=== PATIENT | male | born 1960 | race Caucasian/White ===

== ENCOUNTER → 2017-03-01 | Outpatient (CLI) | payer BC ==
--- NOTE | 2017-03-02 10:51 | MRI ---
HISTORY: Low back pain, radiculopathy Study: MRI lumbar spine without contrast Comparison: None Technique: Multiplanar multi-sequence MRI of the lumbar spine was obtained. Sagittal T1, sagittal T 2, and stir weighted images, axial T1, and axial T2 images were obtained. Findings: The lumbar spine demonstrates normal alignment with the expected signal characteristics of the bone marrow. The conus of the cord terminates normally. T12 -- L1: No evidence for compressive disc disease. The neural foramina are patent. The joints are normal. L1 -- L2: No evidence for compressive disc disease. The neural foramina are patent. The joints are n ormal. L2 -- L3: No evidence for compressive disc disease. The neural foramina are patent. Bilateral facet arthropathy is present peer L3 -- L4: No evidence for compressive disc disease. The neural foramina are patent. Bilateral facet arthropathy is present. L4 -- L5: Concentric disk bulging effaces the thecal sac and contributes along with facet arthropath y to lateral recess narrowing bilaterally. L5 -- S1: Concentric disk bulging effaces the thecal sac and contributes along with bilateral facet arthropathy and spondylitic change to lateral recess and foraminal narrowing bilaterally left slight ly worse than right and both more prominent than at the levels above. IMPRESSION: As above Reported By:
--- NOTE | 2017-03-02 14:40 | MRI ---
Indication: Neck pain. Exam: MRI cervical spine without contrast. Technique: Routine multiplanar multisequence imaging was performed through the cervical spine withou t contrast. Findings: The cervical vertebra are well aligned. There is a mild segmental fusion anomaly of C2. Th ere is moderate disc space narrowing at C2-3 and there is susceptibility artifact anterior to the C3 , C4, C5, and C6 vertebra with metallic fixation plates anteriorly and associated fusion of the disc spaces. There is moderate narrowing of the C6-7 disc space. No fracture or subluxation is seen. The re is a moderate disk osteophyte complex at C2-3 causing mild cord effacement anteriorly . There is questionable focal cord atrophy and focal abnormal signal in the cord at the C4-5 level . There is a disk osteophyte complex at C6-7 causing moderate dural sac effacement anteriorly. The bone marrow s ignal is otherwise unremarkable. The prevertebral soft tissues are normal. Impression: Limited study due to motion artifact. Partial fusion anomaly of C2. Status post ACDF of C3 through C6 with no acute abnormality seen. Moderate disc osteophyte complex at C2-3 causing mild cord effacement. Moderate disc osteophyte complex at C6-7 causing moderate dural sac effacement. Probable focal cord atrophy at C4-5 and associated small focus of abnormal signal in the Cord at this level which may represent gliosis from scarring or less likely demyelination from other etiology. Suggest followup to assure stability or a repeat scan with contrast to characterize the a david.
== END | disposition home or self-care (01) ==
LOC: RAD 10:08
PROVIDERS: ATTEND Internal Medicine
DX: M54.17 Radiculopathy, lumbosacral region (principal); M50.823 Other cervical disc disorders at C6-C7 level; M50.81 Other cervical disc disorders, high cervical region; Z98.1 Arthrodesis status
CPT/HCPCS: 72141; 72148

== ENCOUNTER → 2017-04-27 | Outpatient (CLI) | payer BC ==
--- NOTE | 2017-04-27 11:58 | CT ---
History: Low back pain, radiculopathy Study: CT lumbar spine without Findings: [address] imaging through the lumbar region is performed with coronal and sa gittal reformatted images submitted as well. There no previous studies even plain films for comparat levi purposes. Were 3 to there are large bridging syndesmotic fight 's in the lower thoracic region a lso at the T12-L1 level. There may be congenital fusion of the bodies of T9 and T10 or this may be d egenerative in nature. There is mild disc space narrowing at the L4-5 level with mild disc bulging a nd moderate hypertrophic changes at the apophyseal joint with borderline spinal stenosis and mild bi lateral foraminal narrowing. At the L5-S1 level there are advanced degenerative changes of the apophyseal joints with associated bony overgrowth. Posterior lateral endplate spurring from the inferior aspect of L5 on the left prod uces bony foraminal narrowing. There is also mild to moderate right-sided foraminal narrowing due to facet joint hypertrophy. 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 Facet disease at the L4-5 and L5-S1 levels with borderline spinal stenosis at the L4-5 level and for aminal narrowing at both levels. Incidental note is made of a tiny left renal calculus. Reported By:
== END | disposition home or self-care (01) | DRG 552 ==
LOC: RAD 11:17
PROVIDERS: ATTEND Neurological Surgery
DX: M54.16 Radiculopathy, lumbar region (principal); M47.895 Other spondylosis, thoracolumbar region; N20.0 Calculus of kidney
CPT/HCPCS: 72131

== ENCOUNTER → 2017-05-09 | Outpatient (CLI) | payer BC ==
--- NOTE | 2017-05-09 15:17 | MRI ---
HISTORY: Thoracic back pain Study: MRI thoracic spine without contrast Comparison: None Technique: Multiplanar multi sequence noncontrast imaging Findings: The prevertebral soft tissues are normal. The alignment is normal. the vertebral body bone signal i s normal. No compression fractures are. Moderately severe anterior spondylosis is present in the low er thoracic spine. The disc spaces are preserved. The thoracic spinal cord is normal in size and con figuration and without foci of abnormal signal. There is no evidence for compressive disc disease at any level. There is no evidence for compressive spondylitic change at any level. The joints are nor mal. IMPRESSION: No significant abnormality identified Reported By:
== END | disposition home or self-care (01) | DRG 552 ==
LOC: RAD 13:25
PROVIDERS: ATTEND Neurological Surgery
DX: M54.6 Pain in thoracic spine (principal); M47.894 Other spondylosis, thoracic region
CPT/HCPCS: 72146

== ENCOUNTER → 2017-06-26 | Outpatient (CLI) | payer BC ==
--- NOTE | 2017-06-26 10:48 | CT ---
HISTORY: Cervical radiculopathy Study: CT cervical spine without contrast Comparison: None Technique: Axial non contrast images with coronal and sagittal reformats. Dose reduction procedures w ere used with M a/kv adjusted for body size. Findings: The patient is status post C4, 5, 6, 7 anterior interbody fusion with hardware present. Fusion appear s complete. There is also fusion of the C2-3 vertebral bodies and posterior elements most likely steve enital. The alignment is normal. The remainder the vertebral bodies are of average height. The C3-4 d isc space is preserved. The pedicles, spinous processes, and posterior elements are intact. The neura l foramina are patent. Uncovertebral joint degenerative joint disease is present bilaterally at C3-4. Diffuse bilateral mild facet degenerative joint disease is present. IMPRESSION: Postsurgical changes as above No acute findings Facet degenerative joint disease Bilateral uncovertebral joint degenerative joint disease C3-4 Reported By:
== END | disposition home or self-care (01) | DRG 74 ==
LOC: RAD 08:27
PROVIDERS: ATTEND Neurological Surgery
DX: M54.12 Radiculopathy, cervical region (principal); M47.892 Other spondylosis, cervical region
CPT/HCPCS: 72125